=== PATIENT | male | born 1940 | race African-American/Black ===

== ENCOUNTER 2017-06-04 22:21 | Emergency (ER) | payer BC ==
[~2017-06-04] VITALS: Ht 177.8 cm; Wt 63.5 kg
[2017-06-04] MEDS ORDERED: NKM (22:22)
[2017-06-04] MEDS ORDERED: Metoprolol 5mg/5ml Inj IVP ONE (23:00)
[2017-06-04 23:47] LABS: MEAN CORPUSCULAR VOLUME 59 FL (80-99); PLATELET COUNT 731 K/UL (150-450); RED BLOOD COUNT 3.89 M/UL (4.70-6.10); RED CELL DISTRIBUTION WIDTH 18.3 % (11.6-14.8)
[2017-06-05] LABS: ANION GAP 25 mmol/L (5-15); BLOOD UREA NITROGEN 50 mg/dL (7-18); CALCIUM 8.4 MG/DL (8.5-10.1); CARBON DIOXIDE 12 MMOL/L (21-32); CHLORIDE 112 MMOL/L (98-107); POTASSIUM 4.9 MMOL/L (3.5-5.1); SODIUM 149 MMOL/L (136-145)
[2017-06-05] MEDS ORDERED: levETIRAcetam 1,000mg/NS100ml 100 ML IVPB ONE
[2017-06-05 00:10] LABS: WHITE BLOOD COUNT 28.7 K/UL (4.8-10.8)
[2017-06-05 00:13] LABS: ALANINE AMINOTRANSFERASE 184 U/L (12-78); ALBUMIN 2.2 G/DL (3.4-5.0); ALBUMIN/GLOBULIN RATIO 0.4 (1.0-2.7); ALKALINE PHOSPHATASE 440 U/L (46-116); ASPARTATE AMINO TRANSFERASE 407 U/L (15-37); BILIRUBIN,TOTAL 1.9 MG/DL (0.2-1.0); CKMB 1.4 NG/ML (0.0-3.6); CREATINE KINASE 312 U/L (26-308)
[2017-06-05 00:20] LABS: BILIRUBIN,DIRECT 1.3 MG/DL (0.0-0.3)
[2017-06-05 00:25] LABS: INR 1.7 (0.9-1.1)
[2017-06-05 00:35] VITALS: BP 110/70
[2017-06-05 00:55] VITALS: BP 110/70
--- NOTE | 2017-06-05 03:20 | Emergency Room Report ---
History of Present Illness General Chief Complaint: Syncope Source: Patient, Friend, EMS Present Illness HPI 76-year-old male presents ED status post syncopal episode. Per EMS patient had syncopal episode at home and hit his head tonight. Witnessed by friends. Patient lives alone but states his friends come to help him. In the field patient was hypotensive and tachycardic. Given IV fluids with blood pressure improving. Patient denies any medical problems. States he does not take medication of any kind. Friend states that patient is not eating only drinks ensure. States she has history of frequent falls. Denies chest pain or shortness of breath. No other aggravating or leading factors. Denies any other associated symptom Allergies: Coded Allergies: No Known Allergies (Unverified , 06/04/17) Patient History Past Medical History: HTN, CVA/TIA Past Surgical History: none Pertinent Family History: none Social History: Denies: smoking, alcohol use, drug use Immunizations: UTD Reviewed Nursing Documentation: PMH: Agreed, PSxH: Agreed Nursing Documentation-PMH Hx Hypertension: Yes Review of Systems All Other Systems: negative except mentioned in HPI Physical Exam Vital Signs Date Time Temp Pulse Resp B/P (MAP) Pulse Ox O2 Delivery O2 Flow Rate FiO2 06/04/17 22:18 98.4 81 16 111/87 98 Room Air Sp02 EP Interpretation: reviewed, normal General Appearance: no apparent distress, alert, GCS 15, non-toxic, cachetic, thin Head: normocephalic, atraumatic Eyes: bilateral eye normal inspection, bilateral eye PERRL ENT: hearing grossly normal, normal pharynx, no angioedema, normal voice Neck: full range of motion, supple/symm/no masses Respiratory: chest non-tender, lungs clear, normal breath sounds, speaking full sentences Cardiovascular #1: no edema, tachycardia Cardiovascular #2: 2+ carotid (R), 2+ carotid (L), 2+ radial (R), 2+ radial (L) , 2+ dorsalis pedis (R), 2+ dorsalis pedis (L) Gastrointestinal: normal bowel sounds, non tender, soft, non-distended, no guarding, no rebound Rectal: deferred Genitourinary: normal inspection, no CVA tenderness Musculoskeletal: back normal, gait/station normal, normal range of motion, non- tender Neurologic: alert, oriented x3, responsive, motor strength/tone normal, sensory intact, speech normal Psychiatric: judgement/insight normal, memory normal, mood/affect normal, no suicidal/homicidal ideation Reflexes: 3+ bicep (R), 3+ bicep (L), 3+ tricep (R), 3+ tricep (L), 3+ knee (R) , 3+ knee (L) Skin: normal color, no rash, warm/dry, well hydrated Lymphatic: no adenopathy Procedures Critical Care Time Critical Care Time i. I feel this is a highly complex case requiring extensive working including EKG/Rhythm strip, Xray/CT/US, Blood/urine lab work, repeat exams while in ED, and administration of strong opiates/narcotics for pain control, admission to hospital or close patient follow up. Total time: 30 min bedside evaluation and treatment excludes procedures (EKG). Reason for critical care: Hypotensive, atrial fibrillation with RVR, subdural hematoma Possible complications: hypotension, hypertension, WI, shock, arrhythmias, metabolic acidosis, end organ damage, respiratory failure. Interventions: labs, IVFS, EKG, CXR, CT Head. Lopressor. IV Keppra. Mannitol. consultation with neurosurgery at [facility] Course: Patient brought in by EMS after syncopal episode. Hypotensive in the field. Given IV fluids. Rhythm shows atrial fibrillation with RVR. No prior history. Given Lopressor, IV fluids. CT head shows acute on chronic subdural. No midline shift. Labs show significant leukocytosis. Hb 6.0. BUN/ creatinine elevated. LFTS elevated. Given IV Keppra. Given mannitol. Discussed case with [facility] neurosurgery. Patient transferred via 911 Consultations: nursing staff, EMS, family Performed by: Dr Robbins Tolerated well condition = critical j. because of unstable vital signs this patient had a condition that could potentially threaten life or limb. I feel this is a critical patient who required my full attention while patient was considered critical. 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 Hypotensive in the field Differential diagnosis includes- breakthrough seizure, alcohol abuse, noncompliance with medication Clinical course Patient placed on stretcher. Initial history and physical I ordered labs, IV fluids, EKG, CXR, CT Head EKG - afib with RVR CXR hyperinflated lungs Given Lopressor and IV fluids with heart rate improving Labs- significant leukocytosis, hemoglobin 6.0, BUN/creatinine elevated, LFTs significantly elevated CT Brain acute on chornic subdural hematoma. no mass effect. no midline shift Given loading dose of Keppra. given mannitol. Patient is protecting airway and therefore should not be intubated. Patient will be transferred at [facility] for higher level of care. Case endorsed to neurosurgeon i. I feel this is a highly complex case requiring extensive working including EKG/Rhythm strip, Xray/CT/US, Blood/urine lab work, repeat exams while in ED, and administration of strong opiates/narcotics for pain control, admission to hospital or close patient follow up. Diagnosis - syncope, acute on chronic subdural hematoma, acute renal failure, elevated LFTs, anemia transferred in critical condition Labs Test 06/04/17 23:23 White Blood Count 28.7 K/UL (4.8-10.8) Red Blood Count 3.89 M/UL (4.70-6.10) Hemoglobin 6.0 G/DL (14.2-18.0) Hematocrit 23.0 % (42.0-52.0) Mean Corpuscular Volume 59 FL (80-99) Mean Corpuscular Hemoglobin 15.5 PG (27.0-31.0) Mean Corpuscular Hemoglobin Concent 26.3 G/DL (32.0-36.0) Red Cell Distribution Width 18.3 % (11.6-14.8) Platelet Count 731 K/UL (150-450) Mean Platelet Volume 7.5 FL (6.5-10.1) Neutrophils (%) (Auto) % (45.0-75.0) Lymphocytes (%) (Auto) % (20.0-45.0) Monocytes (%) (Auto) % (1.0-10.0) Eosinophils (%) (Auto) % (0.0-3.0) Basophils (%) (Auto) % (0.0-2.0) Differential Total Cells Counted 100 Neutrophils % (Manual) 91 % (45-75) Lymphocytes % (Manual) 5 % (20-45) Monocytes % (Manual) 3 % (1-10) Eosinophils % (Manual) 0 % (0-3) Basophils % (Manual) 0 % (0-2) Band Neutrophils 1 % (0-8) Platelet Estimate Increased Platelet Morphology Normal Poikilocytosis 2+ Anisocytosis 2+ Prothrombin Time 18.2 SEC (9.30-11.50) Prothromb Time International Ratio 1.7 (0.9-1.1) Activated Partial Thromboplast Time 28 SEC (23-33) Sodium Level 149 MMOL/L (136-145) Potassium Level 4.9 MMOL/L (3.5-5.1) Chloride Level 112 MMOL/L (98-107) Carbon Dioxide Level 12 MMOL/L (21-32) Anion Gap 25 mmol/L (5-15) Blood Urea Nitrogen 50 mg/dL (7-18) Creatinine 2.0 MG/DL (0.55-1.30) Estimat Glomerular Filtration Rate mL/min (>60) Glucose Level 73 MG/DL (74-106) Calcium Level 8.4 MG/DL (8.5-10.1) Total Bilirubin 1.9 MG/DL (0.2-1.0) Direct Bilirubin 1.3 MG/DL (0.0-0.3) Aspartate Amino Transf (AST/SGOT) 407 U/L (15-37) Alanine Aminotransferase (ALT/SGPT) 184 U/L (12-78) Alkaline Phosphatase 440 U/L (46-116) Total Creatine Kinase 312 U/L (26-308) Creatine Kinase MB 1.4 NG/ML (0.0-3.6) Creatine Kinase MB Relative Index 0.4 Troponin I 0.012 ng/mL (0.000-0.056) Pro-B-Type Natriuretic Peptide 7345 pg/mL (0-125) Total Protein 7.6 G/DL (6.4-8.2) Albumin 2.2 G/DL (3.4-5.0) Globulin 5.4 g/dL Albumin/Globulin Ratio 0.4 (1.0-2.7) EKG Diagnostic Results Rate: tachycardiac Rhythm: other - afib ST Segments: no acute changes ASA given to the pt in ED: No Rhythm Strip Diag. Results EP Interpretation: yes Rhythm: no PVC's, no ectopy Chest X-Ray Diagnostic Results Chest X-Ray Diagnostic Results : Chest X-Ray Ordered: Yes # of Views/Limited/Complete: 1 View Indication: Other - syncope EP Interpretation: Yes Interpretation: no consolidation, no effusion, no pneumothorax, no acute cardiopulmonary disease Impression: No acute disease Electronically Signed by: Electronically signed by Servando Robbins MD CT/MRI/US Diagnostic Results CT/MRI/US Diagnostic Results : Imaging Test Ordered: CT head Impression acute on chronic subdural hematoma. no midline shift. no mass effect Last Vital Signs Date Time Temp Pulse Resp B/P (MAP) Pulse Ox O2 Delivery O2 Flow Rate FiO2 06/05/17 00:55 98.4 120 16 110/70 98 Room Air Status: improved [facility] Condition: Critical Referrals: [facility],REFERRING (PCP) SERVANDO ROBBINS M.D. Jun 05, 2017 03:20
--- NOTE | 2017-06-05 09:51 | Diagnostic Imaging Report ---
Indication: Syncope Technique: XRAY Chest 1v Comparison: None Findings: Patient rotated to the right. Heart size and mediastinal contours are within normal limits given technique. Is no focal airspace consolidation, pleural effusion or pneumothorax. Nodular densities are noted in the left upper lung which may represent calcified granulomas versus pulmonary nodules. Comparison with prior exams recommended to assess stability. Alternatively CT of the chest recommended for further evaluation. Impression: Limited evaluation given patient rotation. No radiographic evidence of acute cardiopulmonary disease. Nodular densities in the left lung possibly calcified granulomas. Pulmonary nodules not excluded. Comparison with prior exam recommended. Alternatively, CT of the chest recommended for definitive evaluation. This is slightly discrepant from the interpretation of the treating ER physician. Findings discussed with Dr. Zamora of the ED 06/05/17, 9:45 AM.
--- NOTE | 2017-06-05 10:01 | Diagnostic Imaging Report ---
Indication: Syncope Technique: Continuous helical CT scanning of the head was performed utilizing automated exposure control without intravenous contrast material. Axial and coronal reconstructions were obtained. Comparison: None CT dose: Total DLP 1541.47 mGycm; CTDI vol 70.38 mGy Findings: There is acute on chronic left frontotemporal subdural hematoma measuring approximately 7 mm in thickness. There is a 8mm focus of high attenuation in the left frontal lobe mostly representing a area of parenchymal contusion (series 3 image 14). Adjacent area of hypodensity may be related to resolving contusion versus encephalomalacia versus subacute infarct. A similar 3.2 cm left temporal parenchymal hypodensity (series 3 image 12) is noted, again thought to represent evolving contusion versus encephalomalacia versus subacute infarct. Chronic right frontotemporal subgaleal hematoma measuring approximately 4 mm in thickness. No evidence of midline shift at this time. The ventricles sulci and cisterns are prominent, compatible with age-related atrophy. There is periventricular low-attenuation, nonspecific finding suggestive of sequela of chronic microvascular ischemia. There is more confluent hypoattenuation in the right parietal lobe which may represent sequela of remote ischemia versus encephalomalacia from prior trauma. No acute skull fracture is seen. Mastoid air cells and paranasal sinuses are clear. Pneumatization of the bilateral petrous apices noted. Atherosclerotic calcification seen in the cavernous portions of the bilateral internal carotid arteries as well as within the intracranial portions of the bilateral vertebral arteries. Impression: Acute on chronic left frontotemporal subdural hematoma measuring up to 7 mm thickness. 8 mm focus of high attenuation in the left frontal lobe likely representing parenchymal contusion. Surrounding hypodensity in the left frontal lobe and additional hypodensity in the left temporal lobe may related to resolving contusion versus encephalomalacia versus subacute infarcts. Low-attenuation in the right parietal lobe may represent sequela of trauma or age-indeterminate ischemia. MRI can be obtained for more sensitive evaluation as clinically indicated. Chronic right frontotemporal subdural hematoma. This corresponds with the statrad preliminary report with minor changes. Patient has been transferred to [facility] at time of dictation of final report. The CT scanner at [facility] is accredited by the [employer] and the scans are performed using protocols designed to limit radiation exposure to as low as reasonably achievable to attain images of sufficient resolution adequate for diagnostic evaluation.
== END 2017-06-05 01:01 | disposition short-term general hospital (02) ==
LOC: EDBD 22:21 → EMR 22:45
DX: R55 Syncope and collapse (principal); S06.5X0A Traumatic subdural hemorrhage without loss of consciousness, initial encounter; W19.XXXA Unspecified fall, initial encounter; Y92.009 Unspecified place in unspecified non-institutional (private) residence as the place of occurrence of the external cause; N17.9 Acute kidney failure, unspecified; I10 Essential (primary) hypertension; R79.89 Other specified abnormal findings of blood chemistry; D64.9 Anemia, unspecified; D72.829 Elevated white blood cell count, unspecified; Z86.73 Personal history of transient ischemic attack (TIA), and cerebral infarction without residual deficits
CPT/HCPCS: 36415; 70450; 71045; 80053; 82248; 82550; 82553; 83880; 84484; 85007; 85025; 85610; 85730; 86850; 86900; 86901; 93005; 96361; 96374; 96375; 99291; J1953; J2150; 86920